=== PATIENT | male | born 1960 ===

== ENCOUNTER 2023-10-29 03:48 | Day surgery (SDC) | payer BC ==
[2023-10-22 16:53] VITALS: BMI 22.8
[2023-10-29] MEDS: ceFAZolin SODIUM 1 GM VIAL IVPB ONE (16:00)
[2023-10-29] MEDS ORDERED: MIDAZOLAM HCL 2 MG/2 ML SINGLE DOSE VIAL ONE (16:04)
[2023-10-29] MEDS ORDERED: FENTANYL CITRATE/PF 50 MCG/ML VIAL ONE (16:04)
[2023-10-29] MEDS ORDERED: HYDROmorphone HCl 2 MG/ML VIAL ONE (16:04)
[2023-10-29] MEDS ORDERED: SEVOFLURANE 250 ML BTL ONE (16:08)
[2023-10-29] MEDS ORDERED: oxyCODONE HCL 5 MG TABLET PO PRN ×2 (16:27)
[2023-10-29] MEDS ORDERED: LACTATED RINGERS SOLUTION 1,000 ML IV SCH (16:30)
[2023-10-29] MEDS ORDERED: ACETAMINOPHEN INJECTION 100 ML IVPB ONE (16:42)
[2023-10-29] MEDS: BUPIVACAINE HCL/PF 0.5% (5 MG/ML) 30 ML VIAL IJ ONE (17:00)
[2023-10-29] MEDS: LIDOCAINE 1%/EPI 1:100000 (20 ML MULTI DOSE VIAL) IJ ONE (17:00)
[2023-10-29] MEDS ORDERED: SUGAMMADEX SODIUM 200 MG/2 ML VIAL ONE (17:23)
[2023-10-29] MEDS ORDERED: ONDANSETRON 4 MG/2 ML VIAL IVPUSH PRN (17:26)
[2023-10-29] MEDS ORDERED: BACITRACIN ZINC 15 GM TUBE TOPICAL OINTMENT ONE (18:26)
[2023-10-29 18:47] VITALS: RESP 16
[2023-10-29 19:43] VITALS: BP 143/81; PULSE 95; TEMP 97.8
== END 2023-10-29 19:55 | disposition home or self-care (01) ==
LOC: JASU-SURG 03:48
PROVIDERS: ATTEND Surgery
PROC: 0GSR0ZZ Reposition Parathyroid Gland, Open Approach (ICD-10-PCS; 2023-10-29)
PROC: 0GBG0ZX Excision of Left Thyroid Gland Lobe, Open Approach, Diagnostic (ICD-10-PCS; principal; 2023-10-29 12:00)
DX: E04.2 Nontoxic multinodular goiter (principal)
CPT/HCPCS: 88307-TC; 94760; J0131